=== PATIENT | male | born 1945 | race Caucasian/White ===

== ENCOUNTER → 2016-10-17 | Outpatient (CLI) | payer OTHER ==
[~2016-10-17] MED LIST: CHOL100010 PO; CLR10 PO; PANT40TA PO
[2016-10-17 15:00] LABS: URINE APPEARANCE CLEAR (CLEAR); URINE BILIRUBIN NEG (NEG); URINE COLOR DK YELLOW; URINE NITRITE NEG (NEG); URINE PH 5.5 (4.5-7.5); URINE SPECIFIC GRAVITY 1.032 (1.000-1.030); UROBILINOGEN NEG (NEG)
[2016-10-17 15:02] LABS: MANUAL MICROSCOPIC REQUIRED? NO; REVIEW REQ? NO
== END | disposition home or self-care (01) ==
LOC: C.LAB 13:22
PROVIDERS: ATTEND Urology
DX: N40.1 Benign prostatic hyperplasia with lower urinary tract symptoms (principal)

== ENCOUNTER 2016-10-20 07:10 | Observation (INO) | payer OTHER ==
[2016-10-12 10:45] VITALS: BMI 24.0
--- NOTE | 2016-10-12 11:11 | PAT Medication Instructions ---
Service Date Oct 12, 2016. 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
[2016-10-12 11:52] LABS: BASO % 0.5 %; BASO ABS # 0.03 K/uL (0-0.2); COMPLETE YES; HEMATOCRIT 47.3 % (42-52); IG% 0.3 %; LYMPH % 21.3 %; LYMPH ABS # 1.41 K/uL (1.2-3.4); MEAN CELL VOLUME 86.3 fL (80-100); MEAN CORPUSCULAR HEMOGLOBIN 30.8 pg (25-34); MEAN CORPUSCULAR HGB CONC 35.7 g/dl (32-36); MEAN PLATELET VOLUME 9.8 fL (7.4-10.4); NEUT % 70.9 %; PLATELET COUNT 212 K/uL (130-400); RED BLOOD COUNT 5.48 M/uL (4.7-6.1); WHITE BLOOD COUNT 6.62 K/uL (4.8-10.8)
--- NOTE | 2016-10-12 11:57 | DIAGNOSTIC IMAGING REPORT ---
CHEST PREADMISSION(PA/LAT) CLINICAL HISTORY: PAT preoperative evaluation COMPARISON STUDY: 01/23/2009 FINDINGS: The bones soft tissues and hemidiaphragms are normal. The cardiomediastinal silhouette is normal. The lungs are clear. The pulmonary vasculature is normal. IMPRESSION: Negative chest. Electronically signed by: Jeffery Whiting M.D. 10/12/2016 11:56 AM Dictated Date/Time: 10/12/2016 11:55 AM
[2016-10-12 12:09] LABS: CALCIUM 8.8 mg/dl (8.5-10.1); CREATININE 0.85 mg/dl (0.60-1.40); POTASSIUM 3.9 mmol/L (3.5-5.1)
[2016-10-20] VITALS (8 sets, daily range): BP systolic 120–146; BP diastolic 73–84; PULSE 72–110; TEMP 36.4–37.1; O2SAT 92–99; Ht 177.8 cm; Wt 77.0 kg
[~2016-10-20] VITALS: Ht 177.8 cm; Wt 77.0 kg
[~2016-10-20 07:10] MED LIST changes: +CIPROFLOXACIN / D5W 400 MG IV SCH
[2016-10-20] MEDS ORDERED: FENTANYL CITRATE INJ 50 MCG/1 ML 2 ML VIAL IV PRN (07:15)
[2016-10-20] MEDS ORDERED: EpHEDrine SULFATE INJ 50 MG/ML AMP IV PRN (07:15)
[2016-10-20] MEDS ORDERED: ATROPINE SULFATE 0.1 MG/ML 5ML SYR IV PRN (07:15)
[2016-10-20] MEDS ORDERED: ONDANSETRON INJ 2 MG/ML 2 ML VIAL IV PRN (07:15)
[2016-10-20] MEDS ORDERED: FENTANYL CITRATE INJ 50 MCG/1 ML 2 ML VIAL ONE ×2 (07:34→09:51)
[2016-10-20] MEDS ORDERED: MIDAZOLAM HCL 1 MG/ML 2ML VIAL ONE (07:34)
[2016-10-20] MEDS ORDERED: DEXAMETHASONE SOD INJ 4 MG/ML VIAL ONE ×2 (07:34→09:01)
[2016-10-20] MEDS ORDERED: ONDANSETRON INJ 2 MG/ML 2 ML VIAL ONE (07:34)
[2016-10-20] MEDS ORDERED: PROPOFOL IV EMULSION 10 MG/ML 20 ML VIAL IV ONE (07:34)
[2016-10-20] MEDS ORDERED: LIDOCAINE HCL 2% 2 ML VIAL (20MG/ML) ONE (07:34)
[2016-10-20] MEDS: LACTATED RINGER'S 1000ML 1,000 ML IV SCH ×2 (08:12→10:31)
--- NOTE | 2016-10-20 08:35 | History & Physical Bridge Note ---
H&P Re-Evaluation Bridge Note: I have examined the patient, reviewed the History & Physical and in the interval since the performance of the History & Physical I have noted the following changes of clinical significance: No changes noted
[2016-10-20] MEDS ORDERED: SUCCINYLCHOLINE 100MG/5ML SYR IV ONE (09:01)
[2016-10-20] MEDS ORDERED: PHENYLEPHRINE 100MCG/ML 5ML SYR ONE (09:12)
--- NOTE | 2016-10-20 10:27 | [facility] Post Operative Brief Note ---
Immediate Operative Summary Operative Date Oct 20, 2016. Pre-Operative Diagnosis Benign prostatic hyperplasia with urinary obstruction Post-Operative Diagnosis same as pre-operative Procedure(s) Performed Bipolar Transurethral Resection Prostate Surgeon Dr. Obed Smith Restorative Coordinator Surgeon(s) none Estimated Blood Loss 50ml Findings mild bladdewr neck contracture Specimens no specimen per surgeon Drains [id number] Disposition Recovery Room / PACU
[2016-10-20] MEDS ORDERED: MoRPHine SULFATE 2 MG/ML CARP IV PRN (10:30)
[2016-10-20] MEDS ORDERED: PANTOprazole SOD 40 MG TAB PO PRN (10:30)
--- NOTE | 2016-10-20 10:30 | Anesthesiology Progress Note ---
Anesthesia Post Op Note Date & Time Oct 20, 2016 at 10:30 Vital Signs Pain Intensity: 1 Vital Signs Past 12 Hours Date Time Temp Pulse Resp B/P Pulse Ox O2 Delivery O2 Flow Rate FiO2 10/20/16 10:20 79 19 135/93 98 Nasal Cannula 4 10/20/16 10:10 67 12 130/88 98 Nasal Cannula 4 10/20/16 10:03 36.0 70 10 122/86 99 Nasal Cannula 4 10/20/16 08:03 36.5 87 18 146/84 95 Room Air Notes Mental Status: alert / awake / arousable, participated in evaluation Pt Amnestic to Procedure: Yes Nausea / Vomiting: adequately controlled Pain: adequately controlled Airway Patency, RR, SpO2: stable & adequate BP & HR: stable & adequate Hydration State: stable & adequate Anesthetic Complications: no major complications apparent
[2016-10-20] MEDS ORDERED: IV FLUIDS COMPLETED PRN (11:15)
--- NOTE | 2016-10-20 14:08 | OPERATIVE REPORT ---
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 POSTOPERATIVE DIAGNOSIS: Same with some recurrent tissue. PROCEDURE PERFORMED: Incision of bladder neck and partial TURP. HISTORY OF PRESENTATION: The patient is a 71-year-old male who is status post a TURP in February of 2009. He did well but subsequently the flow began to slow down and recently a cystoscopy was performed which showed somewhat of a bladder neck contracture. I was able to see into the bladder was not pinpoint but it was constricted enough that the patient has been having significant voiding symptoms with hesitancy and decreased flow. We discussed the options including recurrent incision of the bladder neck and removal of any residual prostatic tissue. The patient agreed this was delayed for several months until after the holidays. The patient presents now for treatment. DESCRIPTION OF THE PROCEDURE: The patient was taken to the operating room after general anesthesia was administered. He was given preoperative antibiotics, had Venodyne stockings placed prior to anesthesia and was then placed in dorsal lithotomy position, prepped and draped in usual sterile fashion. I was able to pass a 17-Prydeinig cystoscope into the bladder. There was some resistance at the bladder neck and then I was able to dilate it to 21-Prydeinig scope and then 22-Prydeinig scope and then the 24-Prydeinig resectoscope. I did make an incision and resected the inferior aspect of the bladder neck taking care not to go to the ureteral orifices. I did resect some residual tissue but did not resect beyond the verumontanum. There was one area near the bladder neck in one of the V incisions both towards the right and left ureter that had several episodes of recurrent bleeding that had to be coagulated. At the end of the procedure, there was no evidence for any bleeding. A photo was taken showing an open prostate from the verumontanum into the bladder. The patient had a 22-Prydeinig catheter placed and was transferred to the recovery room in stable condition. I attest to the content of the Intraoperative Record and any orders documented therein. Any exceptions are noted below. LEONCIO
[2016-10-20] MEDS: SODIUM CHLORIDE 0.9% 1000ML 1,000 ML IV SCH ×4 (14:25→21:47)
[2016-10-20] MEDS ORDERED: NURSING VERBAL MED ORDER ONE (17:45)
[2016-10-20] MEDS ORDERED: PHENAZOPYRIDINE HCL 200 MG TAB PO PRN (18:30)
[2016-10-20] MEDS: CIPROFLOXACIN / D5W 400 MG in PREMIXED IN D5W 200 ML IV SCH (21:41)
[2016-10-21] MEDS ORDERED: NURSING VERBAL MED ORDER ONE (00:45)
[2016-10-21] MEDS ORDERED: ACETAMINOPHEN 325 MG TAB PO PRN (01:00)
[2016-10-21] MEDS ORDERED: IBUPROFEN 200 MG TAB PO PRN (01:00)
[2016-10-21 03:59] VITALS: BP 120/72; PULSE 100; TEMP 36.5; O2SAT 94
[2016-10-21] MEDS: SODIUM CHLORIDE 0.9% 1000ML 1,000 ML IV SCH ×2 (04:33→08:55)
[2016-10-21 06:51] VITALS: BP 111/66; PULSE 87; TEMP 36.9; O2SAT 95
[2016-10-21 07:30] VITALS: O2SAT 95
--- NOTE | 2016-10-21 08:29 | Anesthesiology Progress Note ---
Anesthesia Post Op Note Date & Time Oct 21, 2016 at 08:28 Vital Signs Pain Intensity: 4.0 Vital Signs Past 12 Hours Date Time Temp Pulse Resp B/P Pulse Ox O2 Delivery O2 Flow Rate FiO2 10/21/16 06:51 36.9 87 19 111/66 95 Room Air 10/21/16 03:59 36.5 100 18 120/72 94 Room Air 10/21/16 00:20 Room Air 10/20/16 23:40 37.1 102 18 120/76 93 Room Air Notes Mental Status: alert / awake / arousable, participated in evaluation Pt Amnestic to Procedure: Yes Nausea / Vomiting: adequately controlled Pain: adequately controlled Airway Patency, RR, SpO2: stable & adequate BP & HR: stable & adequate Hydration State: stable & adequate Anesthetic Complications: no major complications apparent
[2016-10-21] MEDS: CIPROFLOXACIN / D5W 400 MG in PREMIXED IN D5W 200 ML IV SCH (08:54)
[2016-10-21] MEDS ORDERED: CHOLECALCIFEROL 1000 INTER.UNIT TAB PO SCH (09:00)
[2016-10-21] MEDS ORDERED: LORATADINE 10 MG TAB PO SCH (09:00)
--- NOTE | 2016-10-21 14:22 | Discharge Instructions ---
Discharge Instructions Admission Reason for Admission: Benign Prostatic Hyperplasia Discharge Discharge Diagnosis / Problem: post op turp Discharge Goals Goal(s): Decrease discomfort, Improve function, Increase independence Activity Recommendations Activity Limitations: per Instructions/Follow-up section (light activity, call for severe bleeding) . Current Hospital Diet Patient's current hospital diet: Regular Diet Discharge Diet Recommended Diet: Regular Diet Procedures Procedures Performed: Bipolar Transurethral Resection Prostate Pending Studies Studies pending at discharge: no Laboratory Results Lipid Panel Test 09/19/16 08:50 Range/Units Triglycerides Level 146 0-150 mg/dl Cholesterol Level 188 0-200 mg/dl HDL Cholesterol 46 mg/dl Cholesterol/HDL Ratio 4.1 LDL Cholesterol, Calculated 113 mg/dl Medical Emergencies . Who to Call and When: Medical Emergencies: If at any time you feel your situation is an emergency, please call 911 immediately. . Non-Emergent Contact Non-Emergency issues call your: Urologist Call Non-Emergent contact if: temperature is above 101 . . "Provider Documentation" section prepared by Obed Smith. VTE Core Measure Inpt VTE Proph given/why not?: SCD's
[2016-10-21 14:48] VITALS: BP 111/66; PULSE 87; TEMP 36.9; O2SAT 95
--- NOTE | 2016-10-21 14:59 | Progress Note ---
Subjective Date of Service: Oct 21, 2016. Subjective Pt evaluation today including: conversation w/ patient, conversation w/ family , chart review, lab review patient without pain Problem List Medical Problems: (1) Laceration of scalp Status: Acute Objective Vital Signs Date Time Temp Pulse Resp B/P Pulse Ox O2 Delivery O2 Flow Rate FiO2 10/21/16 14:48 36.9 87 19 95 Room Air 10/21/16 06:51 36.9 87 19 111/66 95 Room Air 10/21/16 03:59 36.5 100 18 120/72 94 Room Air 10/21/16 00:20 Room Air 10/20/16 23:40 37.1 102 18 120/76 93 Room Air 10/20/16 19:05 36.7 110 18 127/73 92 Room Air 10/20/16 15:12 36.7 76 18 128/75 94 Room Air Physical Exam Comments: urine clear Assessment and Plan Discharge with leg bag and night bag natalia armenta in am Discharge planning: home
--- NOTE | 2016-11-07 14:28 | DISCHARGE SUMMARY ---
REASON FOR ADMISSION: Transurethral resection of bladder neck contracture and residual bladder neck tissue. HISTORY OF PRESENTATION: The patient is a 71-year-old male who had a TURP 7-8 years ago who had subsequently developed some slowing of his stream with mild bladder neck contracture. Because of his persistent obstructive and irritative voiding symptoms we elected to go back and incise the bladder neck contracture and remove any excess prostate tissue. The patient was taken to the operating room electively on 10/20/16. The incision of the bladder neck contracture was performed as well as removal of some residual prostate tissue. Care was taken not to be too aggressive in removal of the prostate tissue to have recurrent scarring. At the end of the procedure a Luke catheter was placed. Please refer to the operative report for description of this procedure. The patient had the catheter in overnight and did well without significant bleeding and was discharge to home on the with no significant problems. He was instructed to followup the following day for catheter removal.
== END 2016-10-21 15:20 | disposition home or self-care (01) ==
LOC: ENRESERVDT → ENRESERVTM → C.ACU 07:10 → C.MSN 10:18
PROVIDERS: ADMIT Urology; ATTEND Urology
DX: N32.0 Bladder-neck obstruction (principal); N40.1 Benign prostatic hyperplasia with lower urinary tract symptoms; N13.8 Other obstructive and reflux uropathy; K21.9 Gastro-esophageal reflux disease without esophagitis; E78.5 Hyperlipidemia, unspecified; K58.9 Irritable bowel syndrome, unspecified; E55.9 Vitamin D deficiency, unspecified; Z82.49 Family history of ischemic heart disease and other diseases of the circulatory system

== ENCOUNTER → 2016-11-04 | Outpatient (CLI) | payer OTHER ==
[~2016-11-04] MED LIST changes: -CIPROFLOXACIN / D5W 400 MG IV SCH
== END | disposition home or self-care (01) ==
LOC: C.LABSPEC 16:58
PROVIDERS: ATTEND Nurse Practitioner Family
DX: N40.1 Benign prostatic hyperplasia with lower urinary tract symptoms (principal)

== ENCOUNTER → 2017-06-07 | Outpatient (CLI) | payer OTHER ==
[2017-06-07 17:15] LABS: BASO % 0.2 %; BASO ABS # 0.01 K/uL (0-0.2); COMPLETE YES; EOS % 1.1 %; HEMATOCRIT 47.4 % (42-52); IG% 0.2 %; LYMPH % 27.5 %; LYMPH ABS # 1.47 K/uL (1.2-3.4); MEAN CELL VOLUME 86.2 fL (80-100); MEAN CORPUSCULAR HEMOGLOBIN 30.4 pg (25-34); MEAN CORPUSCULAR HGB CONC 35.2 g/dl (32-36); MEAN PLATELET VOLUME 10.6 fL (7.4-10.4); MONO % 7.5 %; NEUT % 63.5 %; PLATELET COUNT 156 K/uL (130-400); WHITE BLOOD COUNT 5.34 K/uL (4.8-10.8)
== END | disposition home or self-care (01) ==
LOC: C.LABBC 14:33
PROVIDERS: ATTEND Physician Assistant Medical
DX: R35.1 Nocturia (principal); K21.9 Gastro-esophageal reflux disease without esophagitis

== ENCOUNTER → 2017-06-10 | Outpatient (CLI) | payer OTHER | END | disposition home or self-care (01) | LOC: C.LAB 09:28 | PROVIDERS: ATTEND Physician Assistant Medical | DX: K21.9 Gastro-esophageal reflux disease without esophagitis (principal) ==

== ENCOUNTER → 2017-10-13 | Outpatient (CLI) | payer OTHER ==
[2017-10-13 09:39] LABS: BASO % 0.4 %; BASO ABS # 0.03 K/uL (0-0.2); EOS % 1.8 %; EOS ABS # 0.14 K/uL (0-0.5); HEMATOCRIT 48.3 % (42-52); HEMOGLOBIN 16.9 g/dL (14.0-18.0); IG# 0.02 K/uL (0.00-0.02); LYMPH % 21.1 %; LYMPH ABS # 1.68 K/uL (1.2-3.4); MEAN CELL VOLUME 88.3 fL (80-100); MEAN CORPUSCULAR HEMOGLOBIN 30.9 pg (25-34); MEAN PLATELET VOLUME 10.4 fL (7.4-10.4); MONO % 5.3 %; MONO ABS # 0.42 K/uL (0.11-0.59); NEUT % 71.1 %; NEUT ABS # 5.66 K/uL (1.4-6.5); PLATELET COUNT 168 K/uL (130-400); RED CELL DISTRIBUTION WIDTH CV 13.2 % (11.5-14.5); RED CELL DISTRIBUTION WIDTH SD 42.5 fL (36.4-46.3); WHITE BLOOD COUNT 7.95 K/uL (4.8-10.8)
[2017-10-13 09:55] LABS: ALBUMIN 3.6 gm/dl (3.4-5.0); ALKALINE PHOSPHATASE 69 U/L (45-117); ALT/SGPT 40 U/L (12-78); AST/SGOT 22 U/L (15-37); BLOOD UREA NITROGEN 21 mg/dl (7-18); CALCIUM 8.9 mg/dl (8.5-10.1); CARBON DIOXIDE 29 mmol/L (21-32); CHOLESTEROL 168 mg/dl (0-200); CREATININE 0.97 mg/dl (0.60-1.40); GLUCOSE 95 mg/dl (70-99); LDL CHOLESTEROL CALCULATED 102 mg/dl; POTASSIUM 3.9 mmol/L (3.5-5.1); SODIUM 140 mmol/L (136-145); TOTAL PROTEIN 6.7 gm/dl (6.4-8.2)
== END | disposition home or self-care (01) ==
LOC: C.LAB 07:39
PROVIDERS: ATTEND Internal Medicine
DX: N40.1 Benign prostatic hyperplasia with lower urinary tract symptoms (principal); K21.9 Gastro-esophageal reflux disease without esophagitis; E55.9 Vitamin D deficiency, unspecified; E78.5 Hyperlipidemia, unspecified; K58.9 Irritable bowel syndrome, unspecified; N35.9 Urethral stricture, unspecified